=== PATIENT | male | born 1950 | race Caucasian/White ===

== ENCOUNTER 2016-09-25 05:23 | Day surgery (SDC) | payer OTHER ==
--- NOTE | ~2016-09-25 | EGD ---
EGD REPORT [facility] [address] [place] [address] NAME: DIMITRIOS CENTENO : [birth year] STATUS : REG [facility]#: [id number] AGE: 65 ADM/REG DATE : 09/25/16 MR#: [id number] REPORT SERV DATE: 09/25/16 DICTATED BY: GHULAM MCINTOSH DATE: 09/25/16 REPORT STATUS : Draft [facility]ANS[facility]IBED BY: [facility] DATE: 09/25/16 Endoscopy Center Patient Name: Dimitrios Centeno Date of : 1950 Attending MD: GHULAM MCINTOSH MD Procedure Date No Time: 09/25/2016 Procedure: Upper GI endoscopy Indications: Epigastric abdominal pain, Dysphagia Referring MD: Rajat Rene Medicines: Monitored Anesthesia Care Complications: No immediate complications. Procedure: Pre-Anesthesia Assessment: - ASA Grade Assessment: II - A patient with mild systemic disease. After obtaining informed consent, the endoscope was passed under direct vision. Throughout the procedure, the patient's blood pressure, pulse, and oxygen saturations were monitored continuously. The GIF [id number] was introduced through the mouth, and advanced to the antrum of the stomach. The upper GI endoscopy was performed with moderate difficulty due to unusual anatomy. The patient tolerated the procedure well. Findings: A moderate stenosis was found 40 cm from the incisors and was traversed. There is a acute turn just before getting to GEJ. A TTS dilator was passed through the scope. Dilation with a 10-11-12 mm balloon (to a maximum balloon size of 12 mm) dilator was performed. Localized moderate inflammation characterized by adherent blood, erythema and friability was found in the gastric body. Biopsies were taken with a cold forceps for histology. Unable to get scope into the duodenum. After passing scope through GEJ the stomach appears to go upwards near the GEJ ? paraesophageal hernia. Impression: - Esophageal stricture. Dilated. - Gastritis. Biopsied. Recommendation: - Await pathology results. - Do an upper GI series. - Perform CT scan (computed tomography) of the abdomen with contrast. Procedure Code(s): --- Professional --- 65975, 52, Esophagogastroduodenoscopy, flexible, transoral; with transendoscopic balloon dilation of EGD REPORT [address] [address] NAME: DIMITRIOS CENTENO : [birth year] STATUS : REG [facility] PAT#: [id number] AGE: 65 ADM/REG DATE : 09/25/16 MR#: [id number] REPORT SERV DATE: 09/25/16 DICTATED BY: GHULAM MCINTOSH DATE: 09/25/16 REPORT STATUS : Draft TRANSCRIBED BY: [facility] DATE: 09/25/16 esophagus (less than 30 mm diameter) 33229, 52, Esophagogastroduodenoscopy, flexible, transoral; with biopsy, single or multiple Diagnosis Code(s): --- Professional --- K22.2, Esophageal obstruction K29.70, Gastritis, unspecified, without bleeding R10.13, Epigastric pain R13.10, Dysphagia, unspecified CPT copyright 2013 [employer]. All rights reserved. The codes documented in this report are preliminary and upon regulatory affairs internship review may be revised to meet current compliance requirements. GHULAM MCINTOSH MD 09/25/2016 7:34 AM This report has been signed electronically. Number of Addenda: 0 Note Initiated On: 09/25/2016 6:52 AM Scope Withdrawal Time 0 hours 0 minutes 0 seconds [address] [place] [id number]
--- NOTE | ~2016-09-25 | EGD ---
EGD REPORT [facility] [address] [place] [address] NAME: DIMITRIOS CENTENO : [birth year] STATUS : REG [facility] [place] PAT#: [id number] AGE: 65 ADM/REG DATE : 09/25/16 MR#: [id number] REPORT SERV DATE: 09/25/16 DICTATED BY: GHULAM MCINTOSH DATE: 09/25/16 REPORT STATUS : Draft [facility]ANSCRIBED BY: [facility] DATE: 09/25/16 Endoscopy Center Patient Name: Dimitrios Centeno Date of : 1950 Attending MD: GHULAM MCINTOSH MD Procedure Date No Time: 09/25/2016 Procedure: Colonoscopy Indications: Screening in patient at increased risk: Colorectal cancer in father 60 or older Referring MD: Rajat Rene Medicines: Monitored Anesthesia Care Complications: No immediate complications. Procedure: Pre-Anesthesia Assessment: - ASA Grade Assessment: II - A patient with mild systemic disease. After I obtained informed consent, the scope was passed under direct vision. Throughout the procedure, the patient's blood pressure, pulse, and oxygen saturations were monitored continuously. The CF [id number] was introduced through the anus and advanced to the cecum, identified by appendiceal orifice and ileocecal valve. The colonoscopy was performed without difficulty. The patient tolerated the procedure well. The quality of the bowel preparation was good. Findings: The digital rectal exam was normal. Pertinent negatives include no palpable rectal lesions. Hemorrhoids were found during retroflexion and were moderate. A sessile polyp was found in the ascending colon. The polyp was 3 mm in size. The polyp was removed with a cold biopsy forceps. Resection and retrieval were complete. Impression: - Hemorrhoids. - One 3 mm polyp in the ascending colon. Resected and retrieved. Recommendation: - Patient has a contact number available for emergencies. The signs and symptoms of potential delayed complications were discussed with the patient. Return to normal activities tomorrow. Written discharge instructions were provided to the patient. - Regular diet. - Continue present medications. - Repeat colonoscopy in 5 years for screening purposes. EGD REPORT [address] [address] NAME: DIMITRIOS CENTENO : 54 STATUS : REG [facility] [place] PAT#: [id number] AGE: 65 ADM/REG DATE : 09/25/16 MR#: [id number] REPORT SERV DATE: 09/25/16 DICTATED BY: GHULAM MCINTOSH DATE: 09/25/16 REPORT STATUS : Draft TRANSCRIBED BY: [email or web address] DATE: 09/25/16 - Return to GI clinic in 1 month. Procedure Code(s): --- Professional --- 76850, Colonoscopy, flexible, proximal to splenic flexure; with biopsy, single or multiple Diagnosis Code(s): --- Professional --- K64.9, Unspecified hemorrhoids D12.2, Benign neoplasm of ascending colon Z12.11, Encounter for screening for malignant neoplasm of colon Z80.0, Family history of malignant neoplasm of digestive organs CPT copyright 2013 [employer]. All rights reserved. The codes documented in this report are preliminary and upon esthetician spa review may be revised to meet current compliance requirements. GHULAM MCINTOSH MD 09/25/2016 7:49 AM This report has been signed electronically. Number of Addenda: 0 Note Initiated On: 09/25/2016 6:48 AM Scope Withdrawal Time 0 hours 7 minutes 7 seconds [address] [place] [address]
[~2016-09-25 05:23] MED LIST: COZAAR100 MG PO; ELIQUIS 5 MG TAB5 MG PO; FLOVENT44 INH; IRON325 MG PO; Lovenox; NEUR100 PO; NORV10 PO; PERCOCET1 TA2 PO; ZANTAC150 MG PO; ZOFRAN ODT4 MG PO
[2017-04-02] MEDS ORDERED: PROAIR HFA INH (12:16)
[2017-04-02] MEDS ORDERED: ATEN25 PO (12:17)
[2017-04-02] MEDS ORDERED: NORV5 PO (12:17)
[2017-04-03] MEDS ORDERED: ULTRAM50 PO (09:17)
== END 2016-09-25 23:59 | disposition home or self-care (01) ==
LOC: DMU 05:23
PROVIDERS: Internal Medicine Gastroenterology
PROC: 0DB68ZX Excision of Stomach, Via Natural or Artificial Opening Endoscopic, Diagnostic (ICD-10-PCS; 2016-09-25)
PROC: 0DBK8ZX Excision of Ascending Colon, Via Natural or Artificial Opening Endoscopic, Diagnostic (ICD-10-PCS; principal; 2016-09-25 07:00)
PROC: 0D748ZZ Dilation of Esophagogastric Junction, Via Natural or Artificial Opening Endoscopic (ICD-10-PCS; 2016-09-25 07:00)
DX: Z12.11 Encounter for screening for malignant neoplasm of colon (principal); D12.2 Benign neoplasm of ascending colon; K64.9 Unspecified hemorrhoids; K22.2 Esophageal obstruction; K29.50 Unspecified chronic gastritis without bleeding; J45.909 Unspecified asthma, uncomplicated; M10.9 Gout, unspecified; K21.9 Gastro-esophageal reflux disease without esophagitis; H91.90 Unspecified hearing loss, unspecified ear; D64.9 Anemia, unspecified; I10 Essential (primary) hypertension; Z80.0 Family history of malignant neoplasm of digestive organs; Z86.718 Personal history of other venous thrombosis and embolism; Z79.899 Other long term (current) drug therapy; Z90.89 Acquired absence of other organs; Z98.890 Other specified postprocedural states
CPT/HCPCS: 88305; 88342; C1726

== ENCOUNTER 2016-10-02 06:57 | Observation (INO) | payer OTHER ==
[2016-10-01 08:10] LABS: BASOPHILS 0.7 %; BASOPHILS ABSOLUTE 0.04 10/3/uL (0.0-0.16); EOSINOPHILS 3.6 %; HEMATOCRIT 42.2 % (40.0-51.0); HEMOGLOBIN 14.2 g/dL (13.6-17.8); IMMATURE GRANULOCYTES 0.2 %; IMMATURE GRANULOCYTES ABSOLUTE 0.01 10/3/uL (0.0-0.11); LYMPHOCYTES 35.8 %; LYMPHOCYTES ABSOLUTE 1.97 10/3/uL (0.67-4.30); MEAN CORPUS HGB CONC 33.6 g/dL (32.0-36.0); MEAN CORPUSCULAR HEMOGLOB 31.1 pg (26.0-34.0); MEAN CORPUSCULAR VOLUME 92.3 fL (80-100); MEAN PLATELET VOLUME 10.2 fL (9.2-13.0); MONOCYTES 8.5 %; MONOCYTES ABSOLUTE 0.47 10/3/uL (0.21-1.20); NEUTROPHILS 51.2 %; NEUTROPHILS ABSOLUTE 2.82 10/3/uL (2.02-8.40); PLATELET COUNT 202 10/3/uL (150-400); RBC DISTRIBUTION WIDTH 13.3 % (12.0-16.0); RED CELL COUNT 4.57 10/6/uL (4.7-6.1); WHITE BLOOD CELLS 5.5 10/3/uL (4.5-10.5)
[2016-10-01 08:11] LABS: MANUAL DIFF NO %
[2016-10-01 08:27] LABS: A/G RATIO 0.9 (0.7-1.9); ALBUMIN 3.3 G/DL (3.5-5.0); BUN (BLOOD UREA NITROGEN) 13 MG/DL (6-23); CALCIUM, SERUM 8.8 MG/DL (8.5-10.4); CHLORIDE, SERUM 109 MMOL/L (96-112); CO2 (CARBON DIOXIDE) 30 MMOL/L (24-34); CREATININE 1.03 MG/DL (0.70-1.30); GFR AFRICAN AMERICAN 89 ML/MIN (>=60); GFR NON AFRICAN AMERICAN 77 ML/MIN (>=60); GLOBULIN 3.6 G/DL (2.5-4.1); GLUCOSE, SERUM 97 MG/DL (60-99); POTASSIUM, SERUM 3.7 MMOL/L (3.5-5.3); SGOT(AST) 17 U/L (5-40); SGPT(ALT) 20 U/L (5-65); SODIUM, SERUM 146 MMOL/L (135-148); TOTAL BILIRUBIN 0.5 MG/DL (0-1.2); TOTAL PROTEIN 6.9 G/DL (6.0-8.5)
[2016-10-01 08:28] LABS: ALKALINE PHOSPHATASE 116 U/L (45-117)
--- NOTE | ~2016-10-02 | OP ---
Record Of Operation [facility] [address] [place]. [address] NAME: KIRK CARD : 54 STATUS : ADM Adrianna PAT#: [id number] AGE: 65 ADM/REG DATE : 10/02/16 MR#: [id number] REPORT SERV DATE: 10/03/16 DICTATED BY: OSBALDO WARE DATE: 10/02/16 REPORT STATUS : Draft TRANSCRIBED BY: MODL DATE: 10/02/16 DATE OF PROCEDURE: 10/02/2016 PREOPERATIVE DIAGNOSIS: Recurrent paraesophageal hiatal hernia, type 2, with persistent dysphagia. POSTOPERATIVE DIAGNOSIS: Recurrent paraesophageal hiatal hernia, type 2, with persistent dysphagia. PROCEDURE: Laparoscopic lysis of adhesions reduction repair of type 2 paraesophageal hiatal hernia with Miromesh, crural repair, and Aminata fundoplication as well as gastropexy. SURGEON: Osbaldo Ware M.D. ANESTHESIA: General. ESTIMATED BLOOD LOSS: 75 mL. DRAINS: 150 Blane in the mediastinum. DETAILS OF PROCEDURE: The patient arrived in the operating suite and was placed on the table in supine position. General anesthesia was obtained via an endotracheal tube. A Mckeon catheter was inserted. The patient placed in modified lithotomy. The abdomen was prepped and draped in a sterile manner. After appropriate time-out, a small incision was performed in the supraumbilical left rectus region. A 10 mm blunt trocar was inserted under laparoscopic visualization. The peritoneal cavity insufflated with CO2 gas to 15 mmHg pressure. Additional trocars were then inserted after the patient had been placed in reverse Trendelenburg in the bilateral anterior axillary lines, left subxiphoid, and right paramedian regions. Instruments were introduced. The lateral segment of the left lobe of the liver was retracted anteriorly with self-retaining retractor. Adhesions were taken down sharply to the posterior aspect of the left lobe of the liver of lateral segment. Huge hiatal opening was identified with a large amount of herniated stomach, which was not reducible. Herniated fat in the old hernia sac was gradually reduced with a combination of sharp and blunt dissection and the Harmonic efren. The dissection proceeded primarily along the medial edge of the right otoniel where definitive plane could be identified. Then proceeding anteriorly along the border of the hiatus, attention was then turned to the medial edge of the left otoniel, which was dissected similarly allowing large amount of stomach to be reduced. The esophagus was identified as well as the anterior vagus nerve. The posterior vagus nerve was never seen. Once the esophagus was fully dissected, it was encircled with one-fourth inch [place] drain and remaining herniated stomach, scarred in very high in the chest posteriorly, it was carefully taken down with the Harmonic efren and sharp dissection. Without obvious injury to the stomach, no serosal tears were noted. Once the stomach could totally be reduced requiring several hours of dissection, the crura were easily cleared. There were several centimeters of tension-free intraabdominal esophageal length without any tension. Orogastric tube decompressed the stomach. The crura were approximated posterior to the esophagus with a series of horizontal mattress and interrupted Record Of Operation [place] [address] [place]. [address] NAME: KIRK CARD : 54 STATUS : ADM Adrianna PAT#: [id number] AGE: 65 ADM/REG DATE : 10/02/16 MR#: [id number] REPORT SERV DATE: 10/03/16 DICTATED BY: OSBALDO WARE DATE: 10/02/16 REPORT STATUS : Draft TRANSCRIBED BY: DON DATE: 10/02/16 0 Ethibond sutures over a 6 x 8 cm piece of Miromesh, biologic mesh, with a keyhole cut for proper passage of the esophagus. The mesh was then secured anteriorly as well proximally in the mesh with horizontal mattress sutures. A 360-degree fundic wrap was then accomplished without tension or twisting. After all prior sutures to the esophagus were taken down, the wrap was then secured very loosely over 3 cm length with 3 interrupted 0 Ethibond sutures to further ameliorate any symptoms from potential reherniation. Gastropexy was then performed along the greater curvature of the stomach to the left upper quadrant with interrupted 0 Ethibond sutures as well. Orogastric tube and [place] drain were removed. A 15 Blane drain was placed in the mediastinum exiting the left anterior axillary line trocar site were secured with 3-0 nylon. The liver retractor was removed. Minimal fluid was present, removed with suction. The peritoneal cavity was deflated. Skin closure at all sites was performed with subcuticular 4-0 Monocryl. Sterile dressing was applied at all sites. The patient awakened, extubated, and taken to PACU. /DON Osbaldo Ware M.D. / [id number] CC: Fernanda Osorio M.D.
[2016-10-03 05:30] LABS: BASOPHILS 0 %; EOSINOPHILS 0 %; HEMATOCRIT 39.4 % (40.0-51.0); HEMOGLOBIN 12.7 g/dL (13.6-17.8); IMMATURE GRANULOCYTES 0.2 %; IMMATURE GRANULOCYTES ABSOLUTE 0.03 10/3/uL (0.0-0.11); LYMPHOCYTES 9.8 %; LYMPHOCYTES ABSOLUTE 1.25 10/3/uL (0.67-4.30); MEAN CORPUS HGB CONC 32.2 g/dL (32.0-36.0); MEAN CORPUSCULAR VOLUME 93.1 fL (80-100); MEAN PLATELET VOLUME 10.6 fL (9.2-13.0); MONOCYTES 6.6 %; MONOCYTES ABSOLUTE 0.84 10/3/uL (0.21-1.20); NEUTROPHILS 83.4 %; NEUTROPHILS ABSOLUTE 10.58 10/3/uL (2.02-8.40); PLATELET COUNT 198 10/3/uL (150-400); RBC DISTRIBUTION WIDTH 13.2 % (12.0-16.0); RED CELL COUNT 4.23 10/6/uL (4.7-6.1)
[2016-10-03 05:32] LABS: MANUAL DIFF NO %; WHITE BLOOD CELLS 12.7 10/3/uL (4.5-10.5)
[2016-10-03 05:34] LABS: INTERNATIONAL NORMAL RATI 1.2 UNITS (-); PROTIME (NOT ORD) 15.3 SEC (12.0-14.5)
[2016-10-03 05:35] LABS: PARTIAL THROMBO TIME 31.6 SEC (22.5-37.2)
[2016-10-03 05:43] LABS: BUN (BLOOD UREA NITROGEN) 12 MG/DL (6-23); CHLORIDE, SERUM 111 MMOL/L (96-112); CREATININE 1.05 MG/DL (0.70-1.30); GFR AFRICAN AMERICAN 87 ML/MIN (>=60); GFR NON AFRICAN AMERICAN 75 ML/MIN (>=60); POTASSIUM, SERUM 4.4 MMOL/L (3.5-5.3); SODIUM, SERUM 143 MMOL/L (135-148)
[2016-10-03 05:46] LABS: CO2 (CARBON DIOXIDE) 25 MMOL/L (24-34); GLUCOSE, SERUM 151 MG/DL (60-99)
[2016-10-03] MEDS ORDERED: PCET PO (08:27)
[2016-10-03] MEDS ORDERED: ZOFRAN4 PO (08:27)
[2017-04-02] MEDS ORDERED: PROAIR HFA INH (12:16)
[2017-04-02] MEDS ORDERED: NORV5 PO (12:17)
[2017-04-02] MEDS ORDERED: ATEN25 PO (12:17)
[2017-04-03] MEDS ORDERED: ULTRAM50 PO (09:17)
== END 2016-10-03 11:43 | disposition home or self-care (01) ==
LOC: SDC 06:57 → SDC/OF 13:18 → 4SO 18:19
PROVIDERS: Specialist
PROC: 0BUR4JZ (ICD-10-PCS; 2016-10-02)
PROC: 0BUS4JZ (ICD-10-PCS; principal; 2016-10-02 08:15)
DX: K44.9 Diaphragmatic hernia without obstruction or gangrene (principal); K21.9 Gastro-esophageal reflux disease without esophagitis; J45.909 Unspecified asthma, uncomplicated; M10.9 Gout, unspecified; D64.9 Anemia, unspecified; H91.90 Unspecified hearing loss, unspecified ear; I10 Essential (primary) hypertension; Z86.718 Personal history of other venous thrombosis and embolism; Z79.899 Other long term (current) drug therapy; Z98.890 Other specified postprocedural states; Z90.89 Acquired absence of other organs
CPT/HCPCS: 71010; 80048; 80053; 85025; 85610; 85730; 93005; 96372; 96374; 96376; A9270-GY; C1781; G0378; J0690; J1885; J2250; J2270; J2405; J2710; J3010; P9045